=== PATIENT | female | born 1965 | race Hispanic/Latino ===

== ENCOUNTER → 2018-11-28 | Outpatient (CLI) | payer BC ==
--- NOTE | 2018-11-28 11:30 | NUR ---
MBSS COMPLETED. SWALLOW FUNCTION AND EFFICIENCY WITHIN FUNCTIONAL LIMITS. RECOMMEND REGULAR TEXTURE, THIN LIQUIDS; PILLS WHOLE WITH LIQUIDS. Addendum: 11/28/18 at 1348 by JAMES WONG, [facility] Amended: Links added.
== END | disposition home or self-care (01) ==
LOC: RAH 10:49
PROVIDERS: ATTEND Otolaryngology
DX: R13.10 Dysphagia, unspecified (principal)
CPT/HCPCS: 74230; 92611